=== PATIENT | male | born 1985 | race Caucasian/White ===

== ENCOUNTER 2020-05-13 21:24 | Inpatient (IN) | payer BC ==
--- NOTE | 2020-05-13 21:39 | ED ---
Abdominal Pain HPI - General Chief Complaint: Abdominal Pain Stated Complaint: Abd Pain Time Seen by Provider: 05/13/20 21:36 Source: patient Mode of arrival: ambulatory - History of Present Illness Initial Comments: Patient is a 34-year-old male presenting to emergency with a chief complaint abdominal pain. Patient reports he woke up this morning around 11:00 and 8 some Ramen noodles which she typically does not. Patient states afterward he has gradually developed increased abdominal pain that is mostly localized to the upper abdominal region and radiates along the sides to bilateral flank region. Patient states he has developed abdominal bloating and take Gas-X today which did help alleviate some of the discomfort although it is still there. Patient states he feels like there is pressure in his abdomen which is causing his discomfort. He does report some nausea but no vomiting. Patient states she has not been able to sit comfortably to alleviate his symptoms. Patient states he did attempt to eat once more but only small amounts. He does report small amou nts of loose stools today but nothing of significance. Denies any penile discharge, testicular pain or tenderness. Denies any nausea vomiting diarrhea. Denies previous abdominal surgeries. - Related Data Home Medications Medication Instructions Recorded Confirmed Acetaminophen Tab [Tylenol Tab] 650 mg PO Q4H PRN 05/19/15 05/19/15 Naproxen Sodium [Aleve] 220 mg PO Q12HR PRN 05/19/15 05/19/15 Previous Rx's Medication Instructions Recorded Hydrocodone/Acetaminophen [[place] 1 each PO Q6HR PRN #20 tab 05/19/15 5-325] Ibuprofen [Motrin] 800 mg PO Q6HR PRN #30 tab 05/19/15 Allergies Allergy/AdvReac Type Severity Reaction Status Date / Time No Known Allergies Allergy Verified 05/13/20 21:30 Review of Systems ROS Statement: Those systems with pertinent positive or pertinent negative responses have been documented in the HPI. ROS Other: All systems not noted in ROS Statement are negative. Past Medical History Additional Past Medical History / Comment(s): right femoral necrosis History of Any Multi-Drug Resistant Organisms: None Reported Past Surgical History: Orthopedic Surgery Additional Past Surgical History / Comment(s): Right hip core decompression, right hip replacement Past Psychological History: No Psychological Hx Reported Smoking Status: Never smoker Past Alcohol Use History: None Reported, Occasional Past Drug Use History: None Reported General Exam Limitations: no limitations General appearance: alert, in no apparent distress Head exam: Present: atraumatic, normocephalic, normal inspection Eye exam: Present: normal appearance, PERRL, EOMI Pupils: Present: normal accommodation ENT exam: Present: normal exam, normal oropharynx, mucous membranes moist, TM's normal bilaterally, normal external ear exam Neck exam: Present: normal inspection, full ROM. Absent: tenderness Respiratory exam: Present: normal lung sounds bilaterally. Absent: respiratory distress, wheezes, rales, rhonchi, stridor Cardiovascular Exam: Present: regular rate, normal rhythm, normal heart sounds GI/Abdominal exam: Present: soft, tenderness (Upper abdominal pain.). Absent: guarding, rebound, rigid Extremities exam: Present: normal inspection, full ROM, normal capillary refill. Absent: tenderness Back exam: Present: normal inspection, full ROM. Absent: tenderness, CVA tend erness (R), CVA tenderness (L) Neurological exam: Present: alert, oriented X3, normal gait Psychiatric exam: Present: normal affect, normal mood Skin exam: Present: warm, dry, intact, normal color Course Vital Signs 05/13/20 21:26 Temperature 97.8 F Pulse Rate 102 H Respiratory 24 Rate Blood Pressure 163/106 O2 Sat by Pulse 99 Oximetry Medical Decision Making - Medical Decision Making Patient is a 34-year-old male presenting to emergency Department with a chief complaint of abdominal pain. On exam patient has epigastric abdominal pain. Patient did report that he drinks "several beers per night, every night". No previous history of pancreatitis. CMP reveals elevated LFTs. Patient also has a lipase level of 3000. Patient given fluids, antiemetics, antispasmodic and analgesia. KUB is unremarkable. CT pending. Patient will be admitted for further medical management. Nothing by mouth. On initial laboratory results, patient has hyperkalemia 5.8. Repeat potassium levels pending. Magnesium pending. She will be admitted for further medical management. Case discussed with . ADmitting is Dr Galarza - Lab Data Result diagrams: 05/13/20 21:53 05/13/20 21:53 Lab Results 05/13/20 05/13/20 05/13/20 Range/Units 21:53 21:53 21:53 WBC 8.2 (3.8-10.6) k/uL RBC 5.03 (4.30-5.90) m/uL Hgb 15.5 (13.0-17.5) gm/dL Hct 45.8 (39.0-53.0) % MCV 90.9 (80.0-100.0) fL MCH 30.8 (25.0-35.0) pg MCHC 33.9 (31.0-37.0) g/dL RDW 11.8 (11.5-15.5) % Plt Count 251 (150-450) k/uL Neutrophils % 80 % Lymphocytes % 10 % Monocytes % 7 % Eosinophils % 2 % Basophils % 0 % Neutrophils # 6.5 (1.3-7.7) k/uL Lymphocytes # 0.9 L (1.0-4.8) k/uL Monocytes # 0.6 (0-1.0) k/uL Eosinophils # 0.2 (0-0.7) k/uL Basophils # 0.0 (0-0.2) k/uL Sodium 135 L (137-145) mmol/L Potassium 5.8 H (3.5-5.1) mmol/L Chloride 104 (98-107) mmol/L Carbon Dioxide 24 (22-30) mmol/L Anion Gap 7 mmol/L BUN 20 (9-20) mg/dL Creatinine 0.71 (0.66-1.25) mg/dL Est GFR (CKD-EPI)AfAm >90 (>60 ml/min/1.73 sqM) Est GFR (CKD-EPI)NonAf >90 (>60 ml/min/1.73 sqM) Glucose 118 H (74-99) mg/dL Calcium 9.6 (8.4-10.2) mg/dL Total Bilirubin 1.3 (0.2-1.3) mg/dL AST 150 H (17-59) U/L ALT 177 H (4-49) U/L Alkaline Phosphatase 55 (38-126) U/L Total Protein 7.9 (6.3-8.2) g/dL Albumin 5.0 (3.5-5.0) g/dL Lipase 3051 H (23-300) U/L Urine Color Yellow Urine Appearance Clear (Clear) Urine pH 5.5 (5.0-8.0) Ur Specific Anthony 1.019 (1.001-1.035) Urine Protein Negative (Negative) Urine Glucose (UA) Negative (Negative) Urine Ketones Negative (Negative) Urine Blood Negative (Negative) Urine Nitrite Negative (Negative) Urine Bilirubin Negative (Negative) Urine Urobilinogen <2.0 (<2.0) mg/dL Ur Leukocyte Esterase Negative (Negative) Disposition Clinical Impression: Pancreatitis, acute Disposition: ADMITTED IP TO THIS [facility] Condition: Good Is patient prescribed a controlled substance at d/c from ED?: No Referrals: Anastasia Bennett MD [Primary Care Provider] - 1-2 days Time of Disposition: 23:08
[2020-05-13] MEDS ORDERED: SODIUM CHLORIDE 0.9% 1,000 ML IV STA (21:46)
[2020-05-13] MEDS ORDERED: PANTOPRAZOLE 40 MG/10 ML VIAL IVP STA (22:11)
[2020-05-13] MEDS ORDERED: DICYCLOMINE 10 MG/ML 2 ML AMP IM STA ×2 (22:11→22:19)
[2020-05-13 22:14] LABS: Basophils % (A) 0 %; Eosinophils # (A) 0.2 k/uL (0-0.7); Eosinophils % (A) 2 %; HCT 45.8 % (39.0-53.0); HGB 15.5 gm/dL (13.0-17.5); Lymphocytes # (A) 0.9 k/uL (1.0-4.8); Lymphocytes % (A) 10 %; MCH 30.8 pg (25.0-35.0); MCHC 33.9 g/dL (31.0-37.0); MCV 90.9 fL (80.0-100.0); Monocytes # (A) 0.6 k/uL (0-1.0); Monocytes % (A) 7 %; Neutrophils # (A) 6.5 k/uL (1.3-7.7); Neutrophils % (A) 80 %; Platelet Count 251 k/uL (150-450); RBC 5.03 m/uL (4.30-5.90); RDW 11.8 % (11.5-15.5); WBC 8.2 k/uL (3.8-10.6)
[2020-05-13 22:22] LABS: Appearance,Urine Clear (Clear); Bilirubin,Urine Negative (Negative); Blood,Urine Negative (Negative); Color,Urine Yellow; Glucose,Urine (UA) Negative (Negative); Ketones,Urine Negative (Negative); Leukocyte Esterase,Urine Negative (Negative); Nitrite,Urine Negative (Negative); PH, Urine 5.5 (5.0-8.0); Protein,Urine Negative (Negative); Specific Gravity,Urine 1.019 (1.001-1.035); Urobilinogen,Urine <2.0 mg/dL (<2.0)
[2020-05-13 22:26] LABS: ALT 177 U/L (4-49); African American GFR (CKD) >90 (>60 ml/min/1.73 sqM); Anion Gap 7 mmol/L; Blood Urea Nitrogen 20 mg/dL (9-20); Calcium 9.6 mg/dL (8.4-10.2); Carbon Dioxide 24 mmol/L (22-30); Chloride 104 mmol/L (98-107); Glucose 118 mg/dL (74-99); Non-African American GFR(CKD) >90 (>60 ml/min/1.73 sqM); Sodium 135 mmol/L (137-145); Total Bilirubin 1.3 mg/dL (0.2-1.3)
[2020-05-13 22:47] LABS: AST 150 U/L (17-59); Alkaline Phosphatase 55 U/L (38-126); Potassium 5.8 mmol/L (3.5-5.1); Total Protein 7.9 g/dL (6.3-8.2)
[2020-05-13] MEDS ORDERED: HYDROmorphone 1 MG/ML 1 ML SYRINGE IVP STA (22:51)
--- NOTE | 2020-05-13 22:52 | XR ---
EXAMINATION TYPE: XR KUB DATE OF EXAM: 05/13/2020 COMPARISON: NONE HISTORY: Pain TECHNIQUE: 2 views FINDINGS: 2 upright views were obtained. There is no sign of intestinal obstruction or pneumoperitone um. Fecal pattern is normal. Lung bases are clear. There are no pathologic calcifications. There is r ight hip prosthesis. IMPRESSION: Nonacute abdomen.
[2020-05-13] MEDS ORDERED: ONDANSETRON 4 MG/2 ML VIAL IVP PRN (23:04)
[2020-05-13] MEDS ORDERED: NALOXONE 0.4 MG/ML 1 ML VIAL IV PRN (23:04)
[2020-05-13] MEDS ORDERED: HYDROmorphone 0.5 MG/0.5 ML SYRINGE IVP PRN (23:04)
[2020-05-13] MEDS: SODIUM CHLORIDE 0.9% 1,000 ML IV SCH (23:31)
[2020-05-14 00:02] LABS: Magnesium 1.8 mg/dL (1.6-2.3)
--- NOTE | 2020-05-14 00:06 | CT ---
EXAMINATION TYPE: CT abdomen pelvis w con DATE OF EXAM: 05/13/2020 COMPARISON: None HISTORY: Mid to Upper Abd Pain CT DLP: 820.60 mGycm Automated exposure control for dose reduction was used. CONTRAST: Performed with IV Contrast, patient injected with 100 mL of Isovue 300. Lung bases are clear. There is no pleural effusion. Heart size is normal. Stomach is intact. Liver sp bryson gallbladder appear normal. The bile ducts are not dilated. There is some fat stranding around t he pancreatic head and small bowel mesentery. There is no adrenal mass. Kidneys show satisfactory contrast opacification. There is no hydronephrosi s. Ureters are not dilated. There is right side perinephric fluid and fat stranding extending along t he right psoas muscle in the posterior pararenal space. Bladder distends smoothly. Delayed images show normal renal excretion. There is no retroperitoneal ad enopathy. There is no evidence of pelvic mass. There are a few sigmoid diverticula. There is no evide nce of diverticulitis. There is no free air. There is no ascites. There is no evidence of bowel obstruction. There are a few small bowel loops in the upper abdomen with mild distention of fluid. These measure up to 2.4 cm. Ap pendix is not seen. There is no sign of thickened appendix. Lumbar vertebra have normal spacing and alignment. Posterior elements are intact. There is right hip prosthesis. The bony pelvis is intact. IMPRESSION: Retroperitoneal inflammatory changes around the pancreas head and extending in the pararenal space on the right side down to the right psoas muscle. This is consistent with pancreatitis. No dilated ducts. Small bowel changes consistent with mild ileus.
[2020-05-14] MEDS: HYDROmorphone 1 MG/ML 1 ML SYRINGE IVP PRN ×6 (01:16→21:58)
[2020-05-14] MEDS: LORazepam 2 MG/ML INJ IV PRN ×3 (02:47→22:15)
[2020-05-14] MEDS ORDERED: HYDROmorphone 1 MG/ML 1 ML SYRINGE IVP PRN (11:48)
--- NOTE | 2020-05-14 14:01 | P.HPIM ---
History of Present Illness 34-year-old male came in with complaints of abdominal pain predominantly in the right the lower abdominal quadrants sharp severe in nature radiating to the back patient is found to have elevated lipase CT of the abdomen did show edema of the retroperitoneum consistent with pancreatitis. He is presently nothing by mouth patient is a receiving frequent opiate medications for pain. Patient also is hungry patient will be started on diet clear liquids later today. Patient does admit to drinking alcohol about [address] did not show any evidence of cholelithiasis. Patient was having nausea denied any vomiting. Patient was on Suboxone but denied any history of hepatitis C year IV drug use in the past and patient apparently had history of prescription drug overuse Review of Systems REVIEW OF SYSTEMS: CONSTITUTIONAL: No fever, no malaise, no fatigue. HEENT: No recent visual problems or hearing problems. Denied any sore throat. CARDIOVASCULAR: No chest pain, orthopnea, PND, no palpitations, no syncope. PULMONARY: No shortness of breath, no cough, no hemoptysis. GASTROINTESTINAL: As mentioned in HPI NEUROLOGICAL: No headaches, no weakness, no numbness. HEMATOLOGICAL: Denies any bleeding or petechiae. GENITOURINARY: Denies any burning micturition, frequency, or urgency. MUSCULOSKELETAL/RHEUMATOLOGICAL: Denies any joint pain, swelling, or any muscle pain. ENDOCRINE: Denies any polyuria or polydipsia. The rest of the 14-point review of systems is negative. Past Medical History Additional Past Medical History / Comment(s): right femoral necrosis History of Any Multi-Drug Resistant Organisms: None Reported Past Surgical History: Orthopedic Surgery Additional Past Surgical History / Comment(s): Right hip core decompression, right hip replacement Past Psychological History: No Psychological Hx Reported Smoking Status: Never smoker Past Alcohol Use History: None Reported, Occasional Past Drug Use History: None Reported Medications and Allergies Home Medications Medication Instructions Recorded Confirmed Type Buprenorphine HCl/Naloxone HCl 1 film SL BID 05/13/20 05/13/20 History [Suboxone 8 mg-2 mg Sl Film] Allergies Allergy/AdvReac Type Severity Reaction Status Date / Time No Known Allergies Allergy Verified 05/13/20 23:33 Physical Exam Vitals: Vital Signs Temp Pulse Pulse Resp BP BP Pulse Ox 05/14/20 07:00 98.4 F 85 17 159/96 99 05/14/20 00:45 98.8 F 87 18 146/90 99 05/14/20 00:00 98.2 F 96 18 135/85 98 05/13/20 23:32 94 18 159/102 98 05/13/20 21:26 97.8 F 102 H 24 163/106 99 Intake and Output 05/13/20 05/14/20 05/14/20 22:59 06:59 14:59 Other: Voiding Method Toilet # Voids 4 Weight 72.575 kg 72.575 kg PHYSICAL EXAMINATION: GENERAL: The patient is alert and oriented x3, not in any acute distress. Well developed, well nourished. HEENT: Pupils are round and equally reacting to light. EOMI. No scleral icterus. No conjunctival pallor. Normocephalic, atraumatic. No pharyngeal erythema. No thyromegaly. CARDIOVASCULAR: S1 and S2 present. No murmurs, rubs, or gallops. PULMONARY: Chest is clear to auscultation, no wheezing or crackles. ABDOMEN: Soft, minimal tenderness in the right lower quadrant and epigastric area, nondistended, normoactive bowel sounds. No palpable organomegaly. MUSCULOSKELETAL: No joint swelling or deformity. EXTREMITIES: No cyanosis, clubbing, or pedal edema. NEUROLOGICAL: Gross neurological examination did not reveal any focal deficits. SKIN: No rashes. Results CBC & Chem 7: 05/13/20 21:53 05/13/20 23:38 Labs: Abnormal Lab Results - Last 24 Hours (Table) 05/13/20 05/13/20 Range/Units 21:53 21:53 Lymphocytes # 0.9 L (1.0-4.8) k/uL Sodium 135 L (137-145) mmol/L Potassium 5.8 H (3.5-5.1) mmol/L Glucose 118 H (74-99) mg/dL AST 150 H (17-59) U/L ALT 177 H (4-49) U/L Lipase 3051 H (23-300) U/L Thrombosis Risk Factor Assmnt - Choose All That Apply Any of the Below Risk Factors Present?: No Other Risk Factors: No Thrombosis Risk Factor Assessment Level: Very Low Risk Assessment and Plan Plan: -Acute alcoholic pancreatitis: Patient will be nothing by mouth for now we'll try and start him on diet later today and monitor clinically. -Alcohol abuse: Patient will be monitored for alcohol withdrawal. -Acute alcoholic hepatitis expected to improve with cessation of alcohol will repeat liver enzymes again tomorrow to make sure the results of that going up -DVT prophylaxis early ambulation
[2020-05-14] MEDS: PANTOPRAZOLE 40 MG/10 ML VIAL IVP SCH (16:45)
[2020-05-14] MEDS: SODIUM CHLORIDE 0.9% 1,000 ML IV SCH ×2 (16:46→23:00)
[2020-05-14] MEDS: NON FORMULARY DRUG (Buprenorphine Hcl/Naloxone Hcl [Suboxone 8 Mg-2 Mg Sl Film] 1 EACH Fil SUBLINGUAL SCH (20:07)
[2020-05-15] MEDS: HYDROmorphone 1 MG/ML 1 ML SYRINGE IVP PRN ×3 (01:52→10:33)
[2020-05-15] MEDS: NON FORMULARY DRUG (Buprenorphine Hcl/Naloxone Hcl [Suboxone 8 Mg-2 Mg Sl Film] 1 EACH Fil SUBLINGUAL SCH (07:08)
[2020-05-15 07:30] LABS: HCT 41.5 % (39.0-53.0); HGB 13.8 gm/dL (13.0-17.5); MCH 30.6 pg (25.0-35.0); MCHC 33.2 g/dL (31.0-37.0); MCV 92.1 fL (80.0-100.0); Mean Platelet Volume 6.3; Platelet Count 196 k/uL (150-450); RBC 4.51 m/uL (4.30-5.90); RDW 11.7 % (11.5-15.5); WBC 4.9 k/uL (3.8-10.6)
[2020-05-15] MEDS: PANTOPRAZOLE 40 MG/10 ML VIAL IVP SCH (07:41)
[2020-05-15 07:43] VITALS: BP 139/87; PULSE 81; RESP 16; TEMP 98.2
[2020-05-15] MEDS: LORazepam 2 MG/ML INJ IV PRN (10:34)
[2020-05-15] MEDS: SODIUM CHLORIDE 0.9% 1,000 ML IV SCH (10:34)
[2020-05-15 12:01] LABS: African American GFR (CKD) 141.7 (60.0-200.0); Albumin/Globulin Ratio 2.5 (1.60-3.17); Anion Gap 8.8 mmol/L (4.00-12.00); Calcium 8.5 mg/dL (8.7-10.3); Carbon Dioxide 27.2 mmol/L (21.6-31.8); Globulin 1.6 g/dL (1.6-3.3); Non-African American GFR(CKD) 122.3 (60.0-200.0); Total Bilirubin 0.7 mg/dL (0.2-1.2); Total Protein 5.6 g/dL (6.2-8.2)
--- NOTE | 2020-05-15 13:53 | P.DS ---
Providers Date of admission: 05/13/20 23:01 Attending physician: Zoie Galarza Primary care physician: Anastasia Bennett [facility] Course: 34-year-old male came in with complaints of abdominal pain predominantly in the right the lower abdominal quadrants sharp severe in nature radiating to the back patient is found to have elevated lipase CT of the abdomen did show edema of the retroperitoneum consistent with pancreatitis. He is presently nothing by mouth patient is a receiving frequent opiate medications for pain. Patient also is hungry patient will be started on diet clear liquids later today. Patient does admit to drinking alcohol about [address] did not show any evidence of cholelithiasis. Patient was having nausea denied any vomiting. Patient was on Suboxone but denied any history of hepatitis C year IV drug use in the past and patient apparently had history of prescription drug overuse 05/15/2020 Patient is clinically doing well at this time we'll advance the diet to go for liquid diet and if patient is able to tolerate full liquid and patient will be discharged today. Causing regarding alcohol cessation was provided and patient is willing to quit alcohol. PHYSICAL EXAMINATION: GENERAL: The patient is alert and oriented x3, not in any acute distress. Well developed, well nourished. HEENT: Pupils are round and equally reacting to light. EOMI. No scleral icterus. No conjunctival pallor. Normocephalic, atraumatic. No pharyngeal erythema. No thyromegaly. CARDIOVASCULAR: S1 and S2 present. No murmurs, rubs, or gallops. PULMONARY: Chest is clear to auscultation, no wheezing or crackles. ABDOMEN: Soft, nontender, nondistended, normoactive bowel sounds. No palpable organomegaly. MUSCULOSKELETAL: No joint swelling or deformity. EXTREMITIES: No cyanosis, clubbing, or pedal edema. NEUROLOGICAL: Gross neurological examination did not reveal any focal deficits. SKIN: No rashes. Assessment and Plan Plan: -Acute alcoholic pancreatitis: Right will be advanced today and if patient is able to tolerate full liquid diet patient will be discharged patient has significant improvement in symptoms at this time. -Alcohol abuse: No alcohol withdrawals at this time. -Acute alcoholic hepatitis improved liver enzymes. Patient Condition at Discharge: Good Plan - Discharge Summary Discharge Rx Participant: Yes New Discharge Prescriptions: No Action Buprenorphine HCl/Naloxone HCl [Suboxone 8 mg-2 mg Sl Film] 1 film SL BID Discharge Medication List Buprenorphine HCl/Naloxone HCl [Suboxone 8 mg-2 mg Sl Film] 1 film SL BID 05/13/20 [History] Follow up Appointment(s)/Referral(s): Anastasia Bennett MD [Primary Care Provider] - 3 Days (Office closed at time of discharge please call MondayMay 18 to set up a follow up appointment) Discharge Disposition: HOME SELF-CARE
== END 2020-05-15 15:59 | disposition home or self-care (01) | DRG 440 ==
LOC: EC 21:24 → 4SSUR 23:01
PROVIDERS: ADMIT Hospitalist; ATTEND Hospitalist
DX: K85.20 Alcohol induced acute pancreatitis without necrosis or infection (principal); K70.10 Alcoholic hepatitis without ascites; E87.5 Hyperkalemia; F10.10 Alcohol abuse, uncomplicated; Z79.891 Long term (current) use of opiate analgesic; Z71.41 Alcohol abuse counseling and surveillance of alcoholic; Z96.641 Presence of right artificial hip joint
CPT/HCPCS: 36415; 74018; 74177; 80053; 81003; 83690; 83735; 84132; 85025; 85027; 93005; 96361; 96372; 96374; 96375; 99285

== ENCOUNTER 2023-04-18 04:30 | Emergency (ER) | payer BC ==
--- NOTE | 2023-04-18 05:07 | ED ---
General Adult HPI - General Source: patient Mode of arrival: ambulatory Limitations: no limitations <Magno Rowell - Last Filed: 04/18/23 06:49> <Harsh Turpin - Last Filed: 04/18/23 09:04> - General Chief complaint: Abdominal Pain Stated complaint: abd pain Time Seen by Provider: 04/18/23 04:45 - History of Present Illness Initial comments: Dictation was produced using [employer] dictation software. please excuse any grammatical, word or spelling errors. Chief Complaint: 37-year-old male presents to the emergency department right lower quadrant pain History of Present Illness: Patient is 29-year-old male presents emergency Department with lower quadrant abdominal pain. Patient has no history of appendectomy. Denies any fevers. Does complain of chills. Patient denies any penile or testicular pain. No nausea or vomiting. States that the pain does feel like it radiates to his right lower back The ROS documented in this emergency department record has been reviewed and confirmed by me. Those systems with pertinent positive or negative responses have been documented in the HPI. All other systems are other negative and/or noncontributory. (Magno Rowell) - Related Data Home Medications Medication Instructions Recorded Confirmed Buprenorphine-Nalox 8-2 mg Tab 1 tab SUBLINGUAL BID 04/18/23 04/18/23 [Suboxone 8-2 mg Tab] Lisdexamfetamine Dimesylate 50 mg PO DAILY 04/18/23 04/18/23 [Vyvanse] Allergies Allergy/AdvReac Type Severity Reaction Status Date / Time No Known Allergies Allergy Verified 04/18/23 08:02 Review of Systems ROS Other: All systems not noted in ROS Statement are negative. <Magno Rowell - Last Filed: 04/18/23 06:49> ROS Other: All systems not noted in ROS Statement are negative. <Harsh Turpin - Last Filed: 04/18/23 09:04> ROS Statement: Those systems with pertinent positive or pertinent negative responses have been documented in the HPI. Past Medical History Additional Past Medical History / Comment(s): right femoral necrosis History of Any Multi-Drug Resistant Organisms: None Reported Past Surgical History: Orthopedic Surgery Additional Past Surgical History / Comment(s): Right hip core decompression, right hip replacement Past Psychological History: No Psychological Hx Reported Smoking Status: Never smoker Past Alcohol Use History: Occasional Past Drug Use History: None Reported <Magno Rowell - Last Filed: 04/18/23 06:49> General Exam Limitations: no limitations <Magno Rowell - Last Filed: 04/18/23 06:49> - General Exam Comments Initial Comments: PHYSICAL EXAM: General Impression: Alert and oriented x3, not in acute distress HEENT: Normocephalic atraumatic, extra-ocular movements intact, pupils equal and reactive to light bilaterally, mucous membranes moist. Cardiovascular: Heart regular rate and rhythm Chest: Able to complete full sentences, no retractions, no tachypnea Abdomen: abdomen soft, mild palpatory tenderness to the right lower quadrant, non-distended, no organomegaly Musculoskeletal: Pulses present and equal in all extremities, no peripheral edema Motor: no focal deficits noted Neurological: CN II-XII grossly intact, no focal motor or sensory deficits noted Skin: Intact with no visualized rashes Psych: Normal affect and mood (Magno Rowell) Course Vital Signs 04/18/23 04/18/23 04/18/23 04:39 06:41 08:07 Temperature 98.1 F Pulse Rate 79 86 60 Respiratory 18 16 18 Rate Blood Pressure 152/88 142/90 145/96 O2 Sat by Pulse 99 100 Oximetry Medical Decision Making - Lab Data Result diagrams: 04/18/23 05:20 04/18/23 05:20 <Magno Rowell - Last Filed: 04/18/23 06:49> - Lab Data Result diagrams: 04/18/23 05:20 04/18/23 05:20 <Harsh Turpin - Last Filed: 04/18/23 09:04> - Medical Decision Making Was pt. sent in by a medical professional or institution (, PA, CELL LEAD, urgent care, hospital, or prison...) When possible be specific @ -[No] Did you speak to anyone other than the patient for history (EMS, parent, family, police, friend...)? What history was obtained from this source @ -[No] Did you review nursing and triage notes (agree or disagree)? Why? @ -[I reviewed and agree with nursing and triage notes] Were old charts reviewed (outside hosp., previous admission, EMS record, old EKG, old radiological studies, urgent care reports/EKG's, prison records)? Report findings @ -[No old charts were reviewed] Differential Diagnosis (chest pain, altered mental status, abdominal pain women, abdominal pain men, vaginal bleeding, musculoskeletal, weakness, fever, dyspnea, syncope, headache, dizziness, GI bleed, back pain, seizure, CVA, palpatations, mental health)? @ -Differential Abdominal Pain Men: Appendicitis, cholecystitis, diverticulosis, ischemic bowel, pancreatitis, hepatitis, UTI, gastroenteritis, AAA, incarcerated hernia, bowel obstruction, constipation, inflammatory bowel, hepatitis, peptic ulcer disease, splenic infarction, perforated viscus, testicular torsion, this is not meant to be an all-inclusive list EKG interpreted by me (3pts min.). @ -[None done] X-rays interpreted by me (1pt min.). @ -[None done] CT interpreted by me (1pt min.). @ -pending U/S interpreted by me (1pt. min.). @ -[None done] What testing was considered but not performed or refused? (CT, X-rays, U/S, labs)? Why? @ -[None] What meds were considered but not given or refused? Why? @ -[None] Did you discuss the management of the patient with other professionals (professionals i.e. , PA, CELL LEAD, lab, RT, psych nurse, older adult social work specialist, rotary engraver, teacher, commanding officer traffic division, manager case)? Give summary @ -[No] Was smoking cessation discussed for >3mins.? @ -[No] Was critical care preformed (if so, how long)? @ -[No] Were there social determinants of health that impacted care today? How? (Homelessness, low income, unemployed, alcoholism, drug addiction, transportation, low edu. Level, literacy, decrease access to med. care, [facility]ci, rehab)? @ -[No] Was there de-escalation of care discussed even if they declined (Discuss DNR or withdrawal of care, Hospice)? DNR status @ -[No] What co-morbidities impacted this encounter? (DM, HTN, Smoking, COPD, CAD, Cancer, CVA, ARF, Chemo, Hep., AIDS, mental health diagnosis, sleep apnea, morbid obesity)? @ -[None] Was patient admitted / discharged? Hospital course, mention meds given and route, prescriptions, significant lab abnormalities, going to OR and other pertinent info. @ -37-year-old male presents emergency Department with acute onset right lower quadrant abdominal pain. Vital signs are stable. Laboratory evaluation janes sanchez CBC is unremarkable. No leukocytosis. Metabolic panel is negative. Abdominal labs negative. Pending CT radiology read. Patient care signed out to Dr. Turpin for follow-up of pending CT imaging (Magno Rowell) Patient signed out to me pending results of CT imaging. Briefly, he presents with right lower quadrant and mid quadrant abdominal pain with some nausea starting last night. No significant past medical history. Patient's laboratory studies are unremarkable. CT imaging as interpreted by myself reveals no obvious acute intra-abdominal process to explain his current symptoms. When I presented bedside to update the patient, states the pain seems more right upper quadrant in nature at this time. I did offer them a gallbladder ultrasound despite labs showing no signs of gallbladder or hepatobiliary pathology at this time. He was in agreement this plan. He will be given IV Toradol and Zofran. Ultrasound is interpreted by myself reveals no obvious evidence of cholecystitis or gallstone however there is some overlying bowel gas which makes interpretation difficult. On reevaluation, patient is feeling improved. We discussed his results. Diagnosis is abdominal pain of unknown etiology. He'll be discharged home with Zofran tablets as well as Tylenol threes. Recommended close follow up with PCP tomorrow Dr. Bennett. He was in agreement this plan. Strict return precautions discussed. I instructed the patient to follow up with their PCP in the next 1-3 days. I provided contact information for follow up with gastroenterology. I explained that the patient should return to the emergency department if they experience any worsening symptoms. Strict return precautions were discussed with the patient. The patient expressed understanding of these instructions. I answered all questions that the patient had. The patient was discharged home in good condition with their prescriptions and follow up information. Diagnosis/symptom? @ -Abdominal pain of unknown etiology Acute, or Chronic, or Acute on Chronic? @ -Acute Uncomplicated (without systemic symptoms) or Complicated (systemic symptoms)? @ -Complicated Side effects of treatment? @ -none Exacerbation, Progression, or Severe Exacerbation] @ -no Poses a threat to life or bodily function? @ -no (Harsh Turpin) - Lab Data Lab Results 04/18/23 04/18/23 Range/Units 05:20 05:20 WBC 7.8 (3.8-10.6) k/uL RBC 4.72 (4.30-5.90) m/uL Hgb 14.7 (13.0-17.5) gm/dL Hct 42.8 (39.0-53.0) % MCV 90.8 (80.0-100.0) fL MCH 31.2 (25.0-35.0) pg MCHC 34.3 (31.0-37.0) g/dL RDW 12.0 (11.5-15.5) % Plt Count 219 (150-450) k/uL MPV 6.8 Neutrophils % 84 % Lymphocytes % 10 % Monocytes % 4 % Eosinophils % 1 % Basophils % 0 % Neutrophils # 6.5 (1.3-7.7) k/uL Lymphocytes # 0.8 L (1.0-4.8) k/uL Monocytes # 0.3 (0-1.0) k/uL Eosinophils # 0.1 (0-0.7) k/uL Basophils # 0.0 (0-0.2) k/uL Sodium 136 L (137-145) mmol/L Potassium 3.8 (3.5-5.1) mmol/L Chloride 102 (98-107) mmol/L Carbon Dioxide 26 (22-30) mmol/L Anion Gap 8 mmol/L BUN 19 (9-20) mg/dL Creatinine 0.65 L (0.66-1.25) mg/dL Est GFR (CKD-EPI)AfAm >90 (>60 ml/min/1.73 sqM) Est GFR (CKD-EPI)NonAf >90 (>60 ml/min/1.73 sqM) Glucose 111 H (74-99) mg/dL Calcium 8.8 (8.4-10.2) mg/dL Total Bilirubin 0.7 (0.2-1.3) mg/dL AST 42 (17-59) U/L ALT 40 (4-49) U/L Alkaline Phosphatase 59 (38-126) U/L Total Protein 7.2 (6.3-8.2) g/dL Albumin 4.3 (3.5-5.0) g/dL Disposition <Magno Rowell - Last Filed: 04/18/23 06:49> Is patient prescribed a controlled substance at d/c from ED?: No Time of Disposition: 08:55 <Harsh Turpin - Last Filed: 04/18/23 09:04> Clinical Impression: Abdominal pain of unknown etiology Disposition: HOME SELF-CARE Condition: Good Instructions (If sedation given, give patient instructions): Abdominal Pain (ED) Referrals: Anastasia Bennett MD [Primary Care Provider] - 1-2 days Manjula Cardoso MD [STAFF PHYSICIAN] - 1-2 days
[2023-04-18 05:41] LABS: Basophils % (A) 0 %; Eosinophils # (A) 0.1 k/uL (0-0.7); Eosinophils % (A) 1 %; HCT 42.8 % (39.0-53.0); HGB 14.7 gm/dL (13.0-17.5); Lymphocytes # (A) 0.8 k/uL (1.0-4.8); Lymphocytes % (A) 10 %; MCH 31.2 pg (25.0-35.0); MCHC 34.3 g/dL (31.0-37.0); MCV 90.8 fL (80.0-100.0); Mean Platelet Volume 6.8; Monocytes # (A) 0.3 k/uL (0-1.0); Monocytes % (A) 4 %; Neutrophils # (A) 6.5 k/uL (1.3-7.7); Neutrophils % (A) 84 %; Platelet Count 219 k/uL (150-450); RBC 4.72 m/uL (4.30-5.90); WBC 7.8 k/uL (3.8-10.6)
[2023-04-18 05:51] LABS: ALT 40 U/L (4-49); AST 42 U/L (17-59); African American GFR (CKD) >90 (>60 ml/min/1.73 sqM); Albumin 4.3 g/dL (3.5-5.0); Alkaline Phosphatase 59 U/L (38-126); Anion Gap 8 mmol/L; Blood Urea Nitrogen 19 mg/dL (9-20); Calcium 8.8 mg/dL (8.4-10.2); Carbon Dioxide 26 mmol/L (22-30); Chloride 102 mmol/L (98-107); Glucose 111 mg/dL (74-99); Non-African American GFR(CKD) >90 (>60 ml/min/1.73 sqM); Potassium 3.8 mmol/L (3.5-5.1); Sodium 136 mmol/L (137-145); Total Bilirubin 0.7 mg/dL (0.2-1.3); Total Protein 7.2 g/dL (6.3-8.2)
--- NOTE | 2023-04-18 07:28 | CT ---
EXAMINATION TYPE: CT abdomen pelvis w con DATE OF EXAM: 04/18/2023 COMPARISON: 05/13/2020 HISTORY: Pain CONTRAST: CT scan of the abdomen and pelvis is performed without Oral Contrast and with IV Contrast, patient in jected with 100 mL of Isovue 300. FINDINGS: LUNG BASES-: No visible nodule. No infiltrate. LIVER/GB: No calcified gallstones. No space occupying hepatic lesion. Biliary tree is of normal ca liber. Mild hepatic steatosis. PANCREAS: No inflammation. No distinct mass. SPLEEN: No splenic enlargement. No lesion seen. ADRENALS: No nodule. No thickening. KIDNEYS/BLADDER: No hydronephrosis. Nonobstructing 3 mm calculus lower pole left kidney. No distinct renal mass. Urinary bladder grossly unremarkable. BOWEL: Normal appendix. Normal bowel caliber. No inflammation. GENITAL ORGANS: No gross abnormality. LYMPH NODES: No greater than 1cm abdominal or pelvic lymph nodes are appreciated. AORTA: No significant abnormality. OSSEOUS STRUCTURES: Right hip prosthesis is noted to be in place. OTHER: No significant additional abnormality is seen. IMPRESSION: 1. Normal appendix visualized. No acute process identified at this time.
[2023-04-18] MEDS ORDERED: ONDANSETRON 4 MG/2 ML VIAL IVP STA (07:51)
[2023-04-18] MEDS ORDERED: KETOROLAC 15 MG/ML 1 ML VIAL IVP STA (07:51)
[2023-04-18 08:08] VITALS: RESP 18
--- NOTE | 2023-04-18 08:44 | US ---
EXAMINATION TYPE: US gallbladder DATE OF EXAM: 04/18/2023 COMPARISON: CT 04/18/23 CLINICAL INDICATION: Male, 37 years old with history of eval gallbladder; Abdominal pain within epiga stric area and RUQ x 7.5 hours. TECHNIQUE: Multiple sonographic images of the right upper quadrant are obtained. FINDINGS: EXAM MEASUREMENTS: Liver Length: 15.0 cm Gallbladder Wall: 0.22 cm CBD: 0.55 cm Right Kidney: 11.1 x 4.9 x 4.2 cm HR BUSINESS PARTNER CONSULTANT NOTES: Limited due to overlying bowel gas. Pancreas: Limited visibility, tail was not seen. Liver: Increased echogenicity. Appears coarse in echotexture. Gallbladder: *Appearance of Phrygian's cap. Slightly limited visibility of gallbladder neck. Evidence for sonographic Mars's sign: No CBD: Measures upper limits. Right Kidney: No hydronephrosis or masses seen IMPRESSION: Hepatic steatosis.
[2023-04-18] MEDS ORDERED: ACET/COD 300 MG/30 MG STARTER PACK 6 TAB BTL PO STA (09:01)
[2023-04-18] MEDS ORDERED: ONDANSETRON 4 MG ODT STARTER PACK 2 TAB BTL PO STA (09:01)
[2023-04-18 09:22] VITALS: BP 133/94; PULSE 74; TEMP 97.9
== END 2023-04-18 09:22 | disposition home or self-care (01) ==
LOC: EC 04:30
DX: R10.31 Right lower quadrant pain (principal)
CPT/HCPCS: 36415; 80053; 85025; 76705; 74177; 99284; 96374; 96375; J2405; J1885; S0119; Q9967

== ENCOUNTER 2025-03-11 13:37 | Observation (INO) | payer BC ==
[2025-03-11 14:28] LABS: Basophils # (A) 0.03 10*3/uL (0.00-0.10); Basophils % (A) 0.4 %; Eosinophils # (A) 0.04 10*3/uL (0.04-0.35); Eosinophils % (A) 0.5 %; HCT 47.1 % (39.6-50.0); HGB 16.5 g/dL (13.0-17.0); Lymphocytes # (A) 0.84 10*3/uL (0.90-5.00); Lymphocytes % (A) 9.9 %; MCH 32.1 pg (27.0-32.0); MCHC 35.0 g/dL (32.0-37.0); MCV 91.6 fL (80.0-97.0); Monocytes # (A) 0.60 10*3/uL (0.20-1.00); Monocytes % (A) 7.1 %; Neutrophils # (A) 6.93 10*3/uL (1.80-7.70); Neutrophils % (A) 81.9 %; Platelet Count 199 10*3/uL (140-440); RBC 5.14 10*6/uL (4.40-5.60); RDW 11.9 % (11.5-14.5); WBC 8.46 10*3/uL (4.50-10.00)
[2025-03-11 14:46] LABS: ALT 223 U/L (4-49); AST 134 U/L (17-59); African American GFR (CKD) >90 (>60 ml/min/1.73 sqM); Albumin 4.9 g/dL (3.5-5.0); Alkaline Phosphatase 83 U/L (38-126); Amylase 131 U/L (30-110); Anion Gap 14 mmol/L; Blood Urea Nitrogen 21 mg/dL (9-20); Calcium 10.3 mg/dL (8.4-10.2); Carbon Dioxide 24 mmol/L (22-30); Chloride 100 mmol/L (98-107); Glucose 128 mg/dL (74-99); Lipase 962 U/L (23-300); Magnesium 1.7 mg/dL (1.6-2.3); Non-African American GFR(CKD) >90 (>60 ml/min/1.73 sqM); Potassium 4.3 mmol/L (3.5-5.1); Sodium 138 mmol/L (137-145); Total Protein 8.4 g/dL (6.3-8.2)
[2025-03-11 15:02] LABS: Bilirubin,Urine Negative (Negative); Blood,Urine Negative (Negative); Color,Urine Yellow; Glucose,Urine (UA) Negative (Negative); Ketones,Urine 2+ (Negative); Leukocyte Esterase,Urine Negative (Negative); Mucus,Urine Rare /hpf; Nitrite,Urine Negative (Negative); PH, Urine 8.5 (5.0-8.0); Protein,Urine 1+ (Negative); RBC,Urine 1 /hpf (0-5); Specific Gravity,Urine 1.031 (1.001-1.035); Squamous Epithelial Cell,Urine <1 /hpf (0-4); Urobilinogen,Urine 2.0 mg/dL (<2.0); WBC,Urine <1 /hpf (0-5)
[2025-03-11] MEDS: SODIUM CHLORIDE 0.9% 1,000 ML IV ONE (15:11)
[2025-03-11] MEDS: SODIUM CHLORIDE 0.9% 500 ML 500 ML IV ONE (15:12)
[2025-03-11] MEDS: METOCLOPRAMIDE 5 MG/ML 2 ML VIAL IVP STA (15:13)
[2025-03-11] MEDS: DICYCLOMINE 10 MG/ML 2 ML AMP IM STA (15:14)
[2025-03-11] MEDS: KETOROLAC 15 MG/ML 1 ML VIAL IVP STA (15:14)
[2025-03-11] MEDS: diphenhydrAMINE 50 MG/ML 1 ML VIAL IVP STA (15:14)
--- NOTE | 2025-03-11 15:19 | ED ---
Abdominal Pain HPI - General Source: patient, RN notes reviewed Mode of arrival: ambulatory Limitations: no limitations <Reggie Dia - Last Filed: 03/11/25 16:07> <Harsh Turpin - Last Filed: 03/11/25 18:16> - General Chief Complaint: Abdominal Pain Stated Complaint: Abd pain Time Seen by Provider: 03/11/25 13:44 - History of Present Illness Initial Comments: 39-year-old male presents emergency department chief complaint of abdominal pain. Patient states that felt like he washaving some increased abdominal pain drinks worsened his symptoms. Patient states that he is having severe sharp crampy type pain in his abdomen. Patient states he did have a bowel movement today but no relief of symptoms denies any chest pain. Patient states that he did have some issues like this in the past and they are unable to find any acute findings. Patient states he has had no prior abdominal surgeries denies dysuria hematuria (Reggie Dia) - Related Data Home Medications Medication Instructions Recorded Confirmed Lisdexamfetamine Dimesylate 50 mg PO DAILY 04/18/23 03/11/25 [Vyvanse] Sublocade 100mg/0.5ml 100 mg SQ Q42D 03/11/25 03/11/25 lamoTRIgine [LaMICtal] 25 mg PO BID 03/11/25 03/11/25 Allergies Allergy/AdvReac Type Severity Reaction Status Date / Time No Known Allergies Allergy Verified 03/11/25 16:04 Review of Systems ROS Other: All systems not noted in ROS Statement are negative. <Reggie Dia - Last Filed: 03/11/25 16:07> ROS Other: All systems not noted in ROS Statement are negative. <Harsh Turpin - Last Filed: 03/11/25 18:16> ROS Statement: Those systems with pertinent positive or pertinent negative responses have been documented in the HPI. Past Medical History Additional Past Medical History / Comment(s): right femoral necrosis History of Any Multi-Drug Resistant Organisms: None Reported Past Surgical History: Orthopedic Surgery Additional Past Surgical History / Comment(s): Right hip core decompression, right hip replacement Past Psychological History: No Psychological Hx Reported Smoking Status: Vaper Past Alcohol Use History: Daily Past Drug Use History: None Reported <Reggie Dia - Last Filed: 03/11/25 16:07> General Exam Limitations: no limitations General appearance: alert, in no apparent distress Head exam: Present: atraumatic, normocephalic, normal inspection Eye exam: Present: normal appearance, PERRL, EOMI. Absent: scleral icterus, conjunctival injection, periorbital swelling ENT exam: Present: normal exam, normal oropharynx, mucous membranes moist Neck exam: Present: normal inspection, full ROM. Absent: tenderness, meningismus, lymphadenopathy Respiratory exam: Present: normal lung sounds bilaterally. Absent: respiratory distress, wheezes, rales, rhonchi, stridor Cardiovascular Exam: Present: regular rate, normal rhythm, normal heart sounds. Absent: systolic murmur, diastolic murmur, rubs, gallop, clicks GI/Abdominal exam: Present: soft, tenderness, normal bowel sounds. Absent: distended, guarding, rebound, rigid Back exam: Absent: CVA tenderness (R), CVA tenderness (L) <Reggie Dia - Last Filed: 03/11/25 16:07> Course Vital Signs 03/11/25 03/11/25 13:38 17:01 Temperature 97.6 F Pulse Rate 64 53 L Respiratory 18 18 Rate Blood Pressure 162/97 138/95 O2 Sat by Pulse 98 100 Oximetry Medical Decision Making - Lab Data Result diagrams: 03/11/25 14:22 03/11/25 14:22 <Reggie Dia - Last Filed: 03/11/25 16:07> - Lab Data Result diagrams: 03/11/25 14:22 03/11/25 14:22 <Harsh Turpin - Last Filed: 03/11/25 18:16> - Medical Decision Making Was pt. sent in by a medical professional or institution (, PA, FRAME HAND, urgent care, hospital, or retirement...) When possible be specific @ -No Did you speak to anyone other than the patient for history (EMS, parent, family, police, friend...)? What history was obtained from this source @ -No Did you review nursing and triage notes (agree or disagree)? Why? @ -I reviewed and agree with nursing and triage notes Were old charts reviewed (outside hosp., previous admission, EMS record, old EKG, old radiological studies, urgent care reports/EKG's, retirement records)? Report findings @ -No old charts were reviewed Differential Diagnosis (chest pain, altered mental status, abdominal pain women, abdominal pain men, vaginal bleeding, weakness, fever, dyspnea, syncope, headache, dizziness, GI bleed, back pain, seizure, CVA, palpatations, mental health, musculoskeletal)? @ -Differential Abdominal Pain Men: Appendicitis, cholecystitis, diverticulosis, ischemic bowel, pancreatitis, hepatitis, UTI, gastroenteritis, AAA, incarcerated hernia, bowel obstruction, constipation, inflammatory bowel, hepatitis, peptic ulcer disease, splenic infarction, perforated viscus, testicular torsion, this is not meant to be an all-inclusive list EKG interpreted by me (3pts min.). @ -None X-rays interpreted by me (1pt min.). @ -None done CT interpreted by me (1pt min.). @ -None done U/S interpreted by me (1pt. min.). @ -None done What testing was considered but not performed or refused? (CT, X-rays, U/S, labs)? Why? @ -None What meds were considered but not given or refused? Why? @ -None Did you discuss the management of the patient with other professionals (prof essionals i.e. , PA, FRAME HAND, lab, RT, psych nurse, social media sr strategy manager, supervisor compounding and finishing, teacher, contact officer, pillowcase maker)? Give summary @ -No Was smoking cessation discussed for >3mins.? @ -No Was critical care preformed (if so, how long)? @ -No Were there social determinants of health that impacted care today? How? (Homelessness, low income, unemployed, alcoholism, drug addiction, transportation, low edu. Level, literacy, decrease access to med. care, care home, rehab)? @ -No Was there de-escalation of care discussed even if they declined (Discuss DNR or withdrawal of care, Hospice)? DNR status @ -No What co-morbidities impacted this encounter? (DM, HTN, Smoking, COPD, CAD, Cancer, CVA, ARF, Chemo, Hep., AIDS, mental health diagnosis, sleep apnea, morbid obesity)? @ -Alcohol abuse Was patient admitted / discharged? Hospital course, mention meds given and route, prescriptions, significant lab abnormalities, going to OR and other pertinent info. @ -Case signed out to Dr. Turpin pending CT. Patient does have transaminitis, elevated lipase and amylase secondary to alcohol abuse. Patient likely has acute pancreatitis. Patient's pain is improved after Toradol, nausea is resolved. (Reggie Dia) Patient signed out to me pending results of CT imaging. Workup so far reveals acute pancreatitis with elevated amylase of 131, elevated lipase of 962, elevated liver enzymes of 134 and 223 respectively. Does have a history of daily alcohol use. CT abdomen pelvis as interpreted by myself reveals acute mild pancreatitis without complication. On reevaluation, patient is still symptomatic with pain and nausea. Patient be given additional medications. I recommended admission at this time by observation. He was placed on a clear liquid diet. He was in agreement this pl an. Consult placed to Dr. Cardoso of gastroenterology. I spoke with the admitting provider, Dr. Banks of [facility] who accepted the admission. Diagnosis/symptom? @ -Acute pancreatitis Acute, or Chronic, or Acute on Chronic? @ -Acute Uncomplicated (without systemic symptoms) or Complicated (systemic symptoms)? @ -Complicated Side effects of treatment? @ -None Exacerbation, Progression, or Severe Exacerbation] @ -No Poses a threat to life or bodily function? @ -Potentially, yes (Harsh Turpin) - Lab Data Lab Results 03/11/25 03/11/25 03/11/25 Range/Units 14:22 14:22 14:52 WBC 8.46 (4.50-10.00) 10*3/uL RBC 5.14 (4.40-5.60) 10*6/uL Hgb 16.5 (13.0-17.0) g/dL Hct 47.1 (39.6-50.0) % MCV 91.6 (80.0-97.0) fL MCH 32.1 H (27.0-32.0) pg MCHC 35.0 (32.0-37.0) g/dL Plt Count 199 (140-440) 10*3/uL MPV 8.5 L (9.5-12.2) fL Immature Gran % (Auto) 0.2 % Neutrophils % 81.9 % Lymphocytes % 9.9 % Monocytes % 7.1 % Eosinophils % 0.5 % Basophils % 0.4 % Immature Gran # 0.02 (0.00-0.04) 10*3/uL Neutrophils # 6.93 (1.80-7.70) 10*3/uL Lymphocytes # 0.84 L (0.90-5.00) 10*3/uL Monocytes # 0.60 (0.20-1.00) 10*3/uL Eosinophils # 0.04 (0.04-0.35) 10*3/uL Basophils # 0.03 (0.00-0.10) 10*3/uL Sodium 138 (137-145) mmol/L Potassium 4.3 (3.5-5.1) mmol/L Chloride 100 (98-107) mmol/L Carbon Dioxide 24 (22-30) mmol/L Anion Gap 14 mmol/L BUN 21 H (9-20) mg/dL Creatinine 0.57 L (0.66-1.25) mg/dL Est GFR (CKD-EPI)AfAm >90 (>60 ml/min/1.73 sqM) Est GFR (CKD-EPI)NonAf >90 (>60 ml/min/1.73 sqM) Glucose 128 H (74-99) mg/dL Plasma Lactic Acid Yoel (0.7-2.0) mmol/L Calcium 10.3 H (8.4-10.2) mg/dL Magnesium 1.7 (1.6-2.3) mg/dL Total Bilirubin 1.3 (0.2-1.3) mg/dL AST 134 H (17-59) U/L ALT 223 H (4-49) U/L Alkaline Phosphatase 83 (38-126) U/L Total Protein 8.4 H (6.3-8.2) g/dL Albumin 4.9 (3.5-5.0) g/dL Amylase 131 H (30-110) U/L Lipase 962 H (23-300) U/L Urine Color Yellow Urine Appearance Clear (Clear) Urine pH 8.5 H (5.0-8.0) Ur Specific [place] 1.031 (1.001-1.035) Urine Protein 1+ H (Negative) Urine Glucose (UA) Negative (Negative) Urine Ketones 2+ H (Negative) Urine Blood Negative (Negative) Urine Nitrite Negative (Negative) Urine Bilirubin Negative (Negative) Urine Urobilinogen 2.0 (<2.0) mg/dL Ur Leukocyte Esterase Negative (Negative) Urine RBC 1 (0-5) /hpf Urine WBC <1 (0-5) /hpf Ur Squamous Epith Cells <1 (0-4) /hpf Urine Mucus Rare H (None) /hpf Serum Alcohol <10 mg/dL 03/11/25 Range/Units 15:06 WBC (4.50-10.00) 10*3/uL RBC (4.40-5.60) 10*6/uL Hgb (13.0-17.0) g/dL Hct (39.6-50.0) % MCV (80.0-97.0) fL MCH (27.0-32.0) pg MCHC (32.0-37.0) g/dL Plt Count (140-440) 10*3/uL MPV (9.5-12.2) fL Immature Gran % (Auto) % Neutrophils % % Lymphocytes % % Monocytes % % Eosinophils % % Basophils % % Immature Gran # (0.00-0.04) 10*3/uL Neutrophils # (1.80-7.70) 10*3/uL Lymphocytes # (0.90-5.00) 10*3/uL Monocytes # (0.20-1.00) 10*3/uL Eosinophils # (0.04-0.35) 10*3/uL Basophils # (0.00-0.10) 10*3/uL Sodium (137-145) mmol/L Potassium (3.5-5.1) mmol/L Chloride (98-107) mmol/L Carbon Dioxide (22-30) mmol/L Anion Gap mmol/L BUN (9-20) mg/dL Creatinine (0.66-1.25) mg/dL Est GFR (CKD-EPI)AfAm (>60 ml/min/1.73 sqM) Est GFR (CKD-EPI)NonAf (>60 ml/min/1.73 sqM) Glucose (74-99) mg/dL Plasma Lactic Acid Yoel 1.2 (0.7-2.0) mmol/L Calcium (8.4-10.2) mg/dL Magnesium (1.6-2.3) mg/dL Total Bilirubin (0.2-1.3) mg/dL AST (17-59) U/L ALT (4-49) U/L Alkaline Phosphatase (38-126) U/L Total Protein (6.3-8.2) g/dL Albumin (3.5-5.0) g/dL Amylase (30-110) U/L Lipase (23-300) U/L Urine Color Urine Appearance (Clear) Urine pH (5.0-8.0) Ur Specific [place] (1.001-1.035) Urine Protein (Negative) Urine Glucose (UA) (Negative) Urine Ketones (Negative) Urine Blood (Negative) Urine Nitrite (Negative) Urine Bilirubin (Negative) Urine Urobilinogen (<2.0) mg/dL Ur Leukocyte Esterase (Negative) Urine RBC (0-5) /hpf Urine WBC (0-5) /hpf Ur Squamous Epith Cells (0-4) /hpf Urine Mucus (None) /hpf Serum Alcohol mg/dL Disposition <Reggie Dia - Last Filed: 03/11/25 16:07> Time of Disposition: 17:03 <Harsh Turpin - Last Filed: 03/11/25 18:16> Clinical Impression: Acute pancreatitis Disposition: ADMITTED IP TO THIS HOSP Condition: Stable
--- NOTE | 2025-03-11 16:17 | CT ---
EXAMINATION TYPE: CT abdomen pelvis w con DATE OF EXAM: 03/11/2025 COMPARISON: 04/18/2023 and 05/13/2020 CLINICAL INDICATION: Male, 39 years old with history of pain; PHH, Abdominal pain x1 day unspecified. Nausea. TECHNIQUE: Performed without Oral Contrast and with IV Contrast, patient injected with 100 ml mL of Isovue 300. CT DLP: 764.[address] CTDI: mGy Automated exposure control for dose reduction was used. FINDINGS: The lung bases are clear. The gallbladder is normal without distention, wall thickening, pericholecystic fluid or gallstones. T here is no biliary ductal dilatation. There is no focal mass or organomegaly involving the liver, pancreas, spleen or adrenal glands. There are mild peripancreatic inflammatory changes in the region of the pancreatic head and duodenum. Natalie lar but more severe changes were seen on the prior study dated 05/13/2020 There is no solid renal mass or hydronephrosis and there is homogeneous contrast enhancement of the r enal parenchyma. The caliber the abdominal aorta is normal is no retroperitoneal adenopathy or hemorr devan. The bowel loops are normal in caliber and there is no evidence of dilatation or obstruction. No infla mmatory changes are identified in the bowel wall or mesentery. There is no free intraperitoneal air or fluid. No pelvic mass, free fluid, abscess or adenopathy. The osseous structures and soft tissues are intact. IMPRESSION: Findings consistent with mild acute pancreatitis with no pancreatic cyst or mass. No other significan t abnormality seen within the abdomen or pelvis. [facility], , 03/11/2025 4:14 PM
[2025-03-11] MEDS ORDERED: ACETAMINOPHEN TAB 500 MG TAB PO PRN (16:59)
[2025-03-11] MEDS ORDERED: NALOXONE 0.4 MG/ML 1 ML VIAL IV PRN (17:01)
[2025-03-11] MEDS: SODIUM CHLORIDE 0.9% 1,000 ML IV STA (17:36)
[2025-03-11] MEDS: ONDANSETRON 4 MG/2 ML VIAL IVP PRN (17:36)
[2025-03-11] MEDS: KETOROLAC 15 MG/ML 1 ML VIAL IVP SCH (17:36)
[2025-03-11] MEDS: HYDROmorphone 0.5 MG/0.5 ML SYRINGE IVP PRN (20:37)
[2025-03-11 21:55] VITALS: RESP 18
[2025-03-11] MEDS: diphenhydrAMINE 50 MG/ML 1 ML VIAL IVP PRN (22:22)
[2025-03-11] MEDS ORDERED: LORazepam 1 MG TAB PO PRN ×3 (23:13)
[2025-03-11] MEDS: LORazepam 0.5 MG TAB PO PRN (23:23)
[2025-03-12] MEDS: LORazepam 1 MG TAB PO PRN (04:24)
[2025-03-12 07:28] LABS: Basophils # (A) 0.02 10*3/uL (0.00-0.10); Basophils % (A) 0.2 %; Eosinophils # (A) 0.03 10*3/uL (0.04-0.35); Eosinophils % (A) 0.3 %; HCT 42.7 % (39.6-50.0); HGB 15.0 g/dL (13.0-17.0); Lymphocytes # (A) 0.60 10*3/uL (0.90-5.00); Lymphocytes % (A) 6.3 %; MCH 32.8 pg (27.0-32.0); MCHC 35.1 g/dL (32.0-37.0); MCV 93.4 fL (80.0-97.0); Monocytes # (A) 0.81 10*3/uL (0.20-1.00); Monocytes % (A) 8.4 %; Neutrophils # (A) 8.10 10*3/uL (1.80-7.70); Neutrophils % (A) 84.5 %; Platelet Count 173 10*3/uL (140-440); RBC 4.57 10*6/uL (4.40-5.60); RDW 11.7 % (11.5-14.5); WBC 9.59 10*3/uL (4.50-10.00)
[2025-03-12 07:55] LABS: ALT 150 U/L (4-49); AST 62 U/L (17-59); African American GFR (CKD) >90 (>60 ml/min/1.73 sqM); Albumin 4.1 g/dL (3.5-5.0); Alkaline Phosphatase 63 U/L (38-126); Anion Gap 9 mmol/L; Blood Urea Nitrogen 15 mg/dL (9-20); Calcium 9.3 mg/dL (8.4-10.2); Carbon Dioxide 24 mmol/L (22-30); Chloride 104 mmol/L (98-107); Glucose 100 mg/dL (74-99); Non-African American GFR(CKD) >90 (>60 ml/min/1.73 sqM); Potassium 3.7 mmol/L (3.5-5.1); Sodium 137 mmol/L (137-145); Total Protein 7.0 g/dL (6.3-8.2)
[2025-03-12] MEDS: PANTOPRAZOLE 40 MG/10 ML VIAL IV SCH (08:18)
[2025-03-12 09:21] LABS: Amylase 86 U/L (30-110); Lipase 462 U/L (23-300)
[2025-03-12 09:27] VITALS: BP 134/78; PULSE 62; TEMP 97.5
--- NOTE | 2025-03-12 10:42 | P.CONS ---
History of Present Illness - Reason for Consult Consult date: 03/12/25 Acute pancreatitis Requesting physician: Harsh Turpin - Chief Complaint Abdominal pain - History of Present Illness This a pleasant 39-year-old male who presented to the emergency department yesterday after having severe abdominal pain. Patient stated that it started as a dull ache on Monday and progressively got worse until yesterday when he could not take the pain anymore. Similar episode occurred about 2 years ago. Patient had a mildly elevated amylase and lipase and CT evidence of acute mild pancreatitis. Patient states that he drinks usually 2 rum and Cokes night however over the weekend he was drinking quite a bit more hanging out with friends. He currently states abdominal pain has been improved. He has been taking his IV Toradol and Dilaudid [id number] as ordered as well as Ativan. He denies any nausea or vomiting. He has been tolerating clear liquid diet. Admitting labs WBC 8.4 hemoglobin 16.5 platelet count 199,000 total bilirubin 1.3 AST 134 ALT 223 alkaline phosphatase 83 amylase 131 lipase 962 Review of Systems REVIEW OF SYSTEMS: CARDIOPULMONARY: No chest pain or shortness of breath. Gastrointestinal: Abdominal pain. No nausea or vomiting. No hematemesis, coffee-ground emesis. No rectal bleeding, or melena. GENITOURINARY: No dysuria or hematuria. MUSCULOSKELETAL: Reports normal range of motion. SKIN: No rashes. No jaundice. ENDOCRINE: No chills, fevers. No excessive weight gain or loss. No polydipsia or polyuria. PSYCHIATRIC: Unremarkable. NEUROLOGY: No change in mental status. Denies dizziness, headache. ENT: Vision unremarkable. CONSTITUTIONAL: No recent weight loss. No fever, chills, night sweats. Past Medical History Additional Past Medical History / Comment(s): right femoral necrosis History of Any Multi-Drug Resistant Organisms: None Reported Past Surgical History: Orthopedic Surgery Additional Past Surgical History / Comment(s): Right hip core decompression, right hip replacement Past Anesthesia/Blood Transfusion Reactions: No Reported Reaction Past Psychological History: ADD/ADHD Smoking Status: Vaper Past Alcohol Use History: Daily Additional Past Alcohol Use History / Comment(s): pt reports drinking for the pa st 10 yrs, pt reports drinking 4 mixed rum drinks a day Past Drug Use History: None Reported Medications and Allergies Home Medications Medication Instructions Recorded Confirmed Type Lisdexamfetamine Dimesylate 50 mg PO DAILY 04/18/23 03/11/25 History [Vyvanse] Sublocade 100mg/0.5ml 100 mg SQ Q42D 03/11/25 03/11/25 History lamoTRIgine [LaMICtal] 25 mg PO BID 03/11/25 03/11/25 History Allergies Allergy/AdvReac Type Severity Reaction Status Date / Time No Known Allergies Allergy Verified 03/11/25 16:04 Physical Exam Vitals: Vital Signs Temp Pulse Pulse Resp BP BP Pulse Ox 03/12/25 02:00 98.0 F 71 158/96 99 03/11/25 22:06 98.4 F 53 L 168/91 100 03/11/25 21:52 56 L 18 142/94 97 03/11/25 20:39 54 L 20 140/92 100 03/11/25 17:01 53 L 18 138/95 100 03/11/25 13:38 97.6 F 64 18 162/97 98 Intake and Output 03/11/25 03/12/25 03/12/25 22:59 06:59 14:59 Other: # Voids 0 2 Weight 68.039 kg General appearance: The patient is alert, oriented, appears in no acute distress. HET: Head is normocephalic and atraumatic. Conjunctiva pink. Sclera anicteric. Neck: Supple without lymphadenopathy. Trachea midline. Heart: Regular. Lungs: Equal expansion, normal respiratory effort. Abdomen: Soft, abdominal tenderness, nondistended. Skin: No rashes. No jaundice. Extremities: Normal skin color and turgor. No pedal edema. Neurological: No focal deficits. Alert and oriented x3. Results CBC & Chem 7: 03/12/25 06:38 03/12/25 06:38 Labs: Abnormal Lab Results - Last 24 Hours (Table) 03/11/25 03/11/25 03/11/25 Range/Units 14:22 14:22 14:52 MCH 32.1 H (27.0-32.0) pg MPV 8.5 L (9.5-12.2) fL Neutrophils # (1.80-7.70) 10*3/uL Lymphocytes # 0.84 L (0.90-5.00) 10*3/uL Eosinophils # (0.04-0.35) 10*3/uL BUN 21 H (9-20) mg/dL Creatinine 0.57 L (0.66-1.25) mg/dL Glucose 128 H (74-99) mg/dL Calcium 10.3 H (8.4-10.2) mg/dL AST 134 H (17-59) U/L ALT 223 H (4-49) U/L Total Protein 8.4 H (6.3-8.2) g/dL Amylase 131 H (30-110) U/L Lipase 962 H (23-300) U/L Urine pH 8.5 H (5.0-8.0) Urine Protein 1+ H (Negative) Urine Ketones 2+ H (Negative) Urine Mucus Rare H (None) /hpf 03/12/25 03/12/25 Range/Units 06:38 06:38 MCH 32.8 H (27.0-32.0) pg MPV 9.1 L (9.5-12.2) fL Neutrophils # 8.10 H (1.80-7.70) 10*3/uL Lymphocytes # 0.60 L (0.90-5.00) 10*3/uL Eosinophils # 0.03 L (0.04-0.35) 10*3/uL BUN (9-20) mg/dL Creatinine 0.55 L (0.66-1.25) mg/dL Glucose 100 H (74-99) mg/dL Calcium (8.4-10.2) mg/dL AST 62 H (17-59) U/L ALT 150 H (4-49) U/L Total Protein (6.3-8.2) g/dL Amylase (30-110) U/L Lipase (23-300) U/L Urine pH (5.0-8.0) Urine Protein (Negative) Urine Ketones (Negative) Urine Mucus (None) /hpf Comments: CT abdomen pelvis with contrast reports findings consistent with mild acute pancreatitis with no pancreatic cyst or mass. No other significant abnormality seen within the abdomen or pelvis. Assessment and Plan (1) Pancreatitis, acute Narrative/Plan: 39-year-old male who is a daily alcohol drinker admits to 2 rum and Cokes a day but apparently does do some heavier drinking on the weekends with similar sy mptoms about 2 years ago admitted for acute pancreatitis, likely alcohol induced. Symptomatic treatment. No further workup indicated. Repeat labs trending down total bilirubin 1.3 AST 62 ALT 150 alkaline phosphatase 63 amylase 86 lipase 462 Current Visit: Yes Status: Acute Code(s): K85.90 - ACUTE PANCREATITIS WITHOUT NECROSIS OR INFECTION, UNSP SNOMED Code(s): 343567362 Plan: 1. Continue symptomatic and supportive care 2. Continue IV fluids 3. May advance to full liquid diet 4. Transition to oral pain medication as needed 5. Protonix 40 mg daily for GI prophylaxis 6. Recommend alcohol abstinence 7. Patient is cleared for discharge from gastroenterology when pain improves/controlled Thank you for this consultation, we will continue to follow. Dr. Danette Cardoso I agree with the dictator's note, documented as a scribe by Kori Aparicio.
--- NOTE | 2025-03-12 14:00 | P.HPIM ---
History of Present Illness Patient is a 39-year-old male came in with severe lower abdominal pain predominantly in the bilateral lower quadrant. Although patient had a CT which showed mild pancreatitis patient did have elevated amylase and lipase lipase going up to about 900. Patient does have a history of chronic alcoholism he says he drinks 2 rum and Cokes every day appears he takes drinks more than that. Patient was admitted for alcohol withdrawal and management of pancreatitis. Patient abdominal pain significantly improved patient was started on clear liquid diet if he tolerates it will be advanced to soft diet before his discharge. Patient last drink was either Monday or Monday patient does not have any significant withdrawals is not requiring Ativan much. Patient was having nausea vomiting. REVIEW OF SYSTEMS: All other systems are negative except those mentioned in the HPI PHYSICAL EXAMINATION: GENERAL: The patient is alert and oriented x3, not in any acute distress. Well developed, well nourished. HEENT: Pupils are round and equally reacting to light. EOMI. No scleral icterus. No conjunctival pallor. Normocephalic, atraumatic. No pharyngeal erythema. No thyromegaly. CARDIOVASCULAR: S1 and S2 present. No murmurs, rubs, or gallops. PULMONARY: Chest is clear to auscultation, no wheezing or crackles. ABDOMEN: Soft, nontender, nondistended, normoactive bowel sounds. No palpable organomegaly. MUSCULOSKELETAL: No joint swelling or deformity. EXTREMITIES: No cyanosis, clubbing, or pedal edema. NEUROLOGICAL: Gross neurological examination did not reveal any focal deficits. SKIN: No rashes. Labs and imaging data was reviewed by me. Assessment and plan -Acute pancreatitis alcoholic pancreatitis: Counseling was provided the patient is doing well we will advance her diet and live in possibility of discharge lat er today - Alcohol abuse: Counseling was provided - Alcohol withdrawal does not have any significant withdrawals at this time patient will be discharged on Librium taper extensive counseling regarding cessation of alcohol was provided - ADHD for which patient is on Vynase which will be resumed Patient will be discharged today if he can tolerate soft diet later today Past Medical History Additional Past Medical History / Comment(s): right femoral necrosis History of Any Multi-Drug Resistant Organisms: None Reported Past Surgical History: Orthopedic Surgery Additional Past Surgical History / Comment(s): Right hip core decompression, right hip replacement Past Anesthesia/Blood Transfusion Reactions: No Reported Reaction Past Psychological History: ADD/ADHD Smoking Status: Vaper Past Alcohol Use History: Daily Additional Past Alcohol Use History / Comment(s): pt reports drinking for the past 10 yrs, pt reports drinking 4 mixed rum drinks a day Past Drug Use History: None Reported Medications and Allergies Home Medications Medication Instructions Recorded Confirmed Type Lisdexamfetamine Dimesylate 50 mg PO DAILY 04/18/23 03/11/25 History [Vyvanse] Sublocade 100mg/0.5ml 100 mg SQ Q42D 03/11/25 03/11/25 History lamoTRIgine [LaMICtal] 25 mg PO BID 03/11/25 03/11/25 History Allergies Allergy/AdvReac Type Severity Reaction Status Date / Time No Known Allergies Allergy Verified 03/11/25 16:04 Physical Exam Vitals: Vital Signs Temp Pulse Pulse Resp BP BP Pulse Ox 03/12/25 07:00 97.5 F L 62 18 134/78 98 03/12/25 02:00 98.0 F 71 158/96 99 03/11/25 22:06 98.4 F 53 L 168/91 100 03/11/25 21:52 56 L 18 142/94 97 03/11/25 20:39 54 L 20 140/92 100 03/11/25 17:01 53 L 18 138/95 100 Intake and Output 03/11/25 03/12/25 03/12/25 22:59 06:59 14:59 Intake Total 200 Balance 200 Intake: Oral 200 Other: # Voids 0 2 Weight 68.039 kg Results CBC & Chem 7: 03/12/25 06:38 03/12/25 06:38 Labs: Abnormal Lab Results - Last 24 Hours (Table) 03/11/25 03/11/25 03/11/25 Range/Units 14:22 14:22 14:52 MCH 32.1 H (27.0-32.0) pg MPV 8.5 L (9.5-12.2) fL Neutrophils # (1.80-7.70) 10*3/uL Lymphocytes # 0.84 L (0.90-5.00) 10*3/uL Eosinophils # (0.04-0.35) 10*3/uL BUN 21 H (9-20) mg/dL Creatinine 0.57 L (0.66-1.25) mg/dL Glucose 128 H (74-99) mg/dL Calcium 10.3 H (8.4-10.2) mg/dL AST 134 H (17-59) U/L ALT 223 H (4-49) U/L Total Protein 8.4 H (6.3-8.2) g/dL Amylase 131 H (30-110) U/L Lipase 962 H (23-300) U/L Urine pH 8.5 H (5.0-8.0) Urine Protein 1+ H (Negative) Urine Ketones 2+ H (Negative) Urine Mucus Rare H (None) /hpf 03/12/25 03/12/25 03/12/25 Range/Units 06:38 06:38 06:38 MCH 32.8 H (27.0-32.0) pg MPV 9.1 L (9.5-12.2) fL Neutrophils # 8.10 H (1.80-7.70) 10*3/uL Lymphocytes # 0.60 L (0.90-5.00) 10*3/uL Eosinophils # 0.03 L (0.04-0.35) 10*3/uL BUN (9-20) mg/dL Creatinine 0.55 L (0.66-1.25) mg/dL Glucose 100 H (74-99) mg/dL Calcium (8.4-10.2) mg/dL AST 62 H (17-59) U/L ALT 150 H (4-49) U/L Total Protein (6.3-8.2) g/dL Amylase (30-110) U/L Lipase 462 H (23-300) U/L Urine pH (5.0-8.0) Urine Protein (Negative) Urine Ketones (Negative) Urine Mucus (None) /hpf
--- NOTE | 2025-03-12 14:01 | P.DS ---
Providers Date of admission: 03/11/25 17:02 Attending physician: Roque Banks MD Consults: 03/11/25 17:01 Consult Physician Routine Consulting Provider: Manjula Cardoso Consult Reason/Comments: acute pancreatitis Do you want consulting provider notified?: Yes Primary care physician: Anastasia Bennett [facility] Course: Patient is a 39-year-old male came in with severe lower abdominal pain predominantly in the bilateral lower quadrant. Although patient had a CT which showed mild pancreatitis patient did have elevated amylase and lipase lipase going up to about 900. Patient does have a history of chronic alcoholism he says he drinks 2 rum and Cokes every day appears he takes drinks more than that. Patient was admitted for alcohol withdrawal and management of pancreatitis. Patient abdominal pain significantly improved patient was started on clear liquid diet if he tolerates it will be advanced to soft diet before his discharge. Patient last drink was either Monday or Monday patient does not have any significant withdrawals is not requiring Ativan much. Patient was having nausea vomiting. REVIEW OF SYSTEMS: All other systems are negative except those mentioned in the HPI PHYSICAL EXAMINATION: GENERAL: The patient is alert and oriented x3, not in any acute distress. Well developed, well nourished. HEENT: Pupils are round and equally reacting to light. EOMI. No scleral icterus. No conjunctival pallor. Normocephalic, atraumatic. No pharyngeal erythema. No thyromegaly. CARDIOVASCULAR: S1 and S2 present. No murmurs, rubs, or gallops. PULMONARY: Chest is clear to auscultation, no wheezing or crackles. ABDOMEN: Soft, nontender, nondistended, normoactive bowel sounds. No palpable organomegaly. MUSCULOSKELETAL: No joint swelling or deformity. EXTREMITIES: No cyanosis, clubbing, or pedal edema. NEUROLOGICAL: Gross neurological examination did not reveal any focal deficits. SKIN: No rashes. Labs and imaging data was reviewed by me. Assessment and plan -Acute pancreatitis alcoholic pancreatitis: Counseling was provided the patient is doing well we will advance her diet and live in possibility of discharge later today - Alcohol abuse: Counseling was provided - Alcohol withdrawal does not have any significant withdrawals at this time patient will be discharged on Librium taper extensive counseling regarding cessation of alcohol was provided - ADHD for which patient is on Vynase which will be resumed Patient will be discharged today if he can tolerate soft diet later today Patient Condition at Discharge: Stable Plan - Discharge Summary New Discharge Prescriptions: Continue Lisdexamfetamine Dimesylate [Vyvanse] 50 mg PO DAILY lamoTRIgine [LaMICtal] 25 mg PO BID Sublocade 100mg/0.5ml 100 mg SQ Q42D Discharge Medication List Lisdexamfetamine Dimesylate [Vyvanse] 50 mg PO DAILY 04/18/23 [History] Sublocade 100mg/0.5ml 100 mg SQ Q42D 03/11/25 [History] lamoTRIgine [LaMICtal] 25 mg PO BID 03/11/25 [History] Follow up Appointment(s)/Referral(s): Anastasia Bennett MD [Primary Care Provider] - 3 Days
== END 2025-03-12 17:31 | disposition home or self-care (01) ==
LOC: EC 13:37 → 1SOBS 17:02
PROVIDERS: ADMIT Internal Medicine; ATTEND Internal Medicine
DX: K85.20 Alcohol induced acute pancreatitis without necrosis or infection (principal); F10.239 Alcohol dependence with withdrawal, unspecified; F90.9 Attention-deficit hyperactivity disorder, unspecified type; F17.290 Nicotine dependence, other tobacco product, uncomplicated; Z79.899 Other long term (current) drug therapy; Z71.41 Alcohol abuse counseling and surveillance of alcoholic
CPT/HCPCS: 96361 ×3; 96375 ×2; 96376 ×3; 96374; 99285; 36415; 80053 ×2; 82150 ×2; 83605; 83690 ×2; 83735; 85025 ×2; 81001; 80320; 74177; G0378 ×2; J1200; J0500; J2765; J2405 ×2; J1885 ×2; J1171 ×2; Q9967; J2470